=== PATIENT | female | born 1985 | race Caucasian/White ===

== ENCOUNTER 2019-02-24 17:08 | Emergency (ER) | payer OTHER ==
[~2019-02-24] VITALS: Ht 165.1 cm; Wt 64.4 kg
[2019-02-24 17:12] VITALS: Ht 165.1 cm; Wt 64.4 kg
[2019-02-24 17:53] VITALS: BP 122/75
== END 2019-02-24 17:53 | disposition home or self-care (01) ==
LOC: ED 17:08
DX: F41.9 Anxiety disorder, unspecified (principal); F32.9 Major depressive disorder, single episode, unspecified; Z76.0 Encounter for issue of repeat prescription; F90.9 Attention-deficit hyperactivity disorder, unspecified type